=== PATIENT | female | born 1990 | race Caucasian/White ===

== ENCOUNTER → 2016-08-25 | Outpatient (CLI) | payer SELFPAY ==
[~2016-08-25] MED LIST: KFL/250 PO
[2016-08-29 03:01] LABS: CHLAMYDIA TRACH RNA*** NOT DETECTED (NOT DETECTED); GC (NEIS GONORRHOEAE)RNA** NOT DETECTED (NOT DETECTED)
== END | disposition home or self-care (01) ==
LOC: C.LABSPEC 18:23
PROVIDERS: ATTEND Obstetrics & Gynecology
DX: Z20.2 Contact with and (suspected) exposure to infections with a predominantly sexual mode of transmission (principal)

== ENCOUNTER 2016-09-07 17:37 | Emergency (ER) | payer SELFPAY ==
[~2016-09-07] VITALS: Ht 157.5 cm; Wt 76.6 kg
[2016-09-07 17:52] VITALS: BP 132/78; TEMP 37; Ht 157.5 cm; Wt 76.6 kg
[2016-09-07] MEDS ORDERED: XYLOCAINE 1%/SOD BICARB 20 ML VIAL INFIL ONE (18:15)
[2016-09-07] MEDS ORDERED: KFL/250 PO (18:41)
--- NOTE | 2016-09-07 18:41 | EMERGENCY ROOM VISIT NOTE ---
History First contact with patient: 18:00 Chief Complaint: LEG PAIN,LEG INJURY Stated Complaint: LUMP ON LEG, PAINFUL AND SEEPING History of Present Illness The patient is a 26 year old female who presents to the Emergency Room with complaints of a small painful lump on the inside of her right thig she statesh. She states it's been there for about one month. She was concerned today because she saw some clear drainage coming from it and felt a sharp pain. The patient just finished a course of Keflex for a cyst on her labia. She finished that on September 04. The patient denies any fever. Review of Systems 6 system review was performed and was negative unless stated otherwise in history of present illness. Past Medical/Surgical History Medical Problems: (1) Anxiety (2) Chlamydial infection (3) Depression (4) Pneumonia (5) Pyelonephritis (6) [place] Teeth Removal Family History Cancer Diabetes mellitus Gallbladder disease Hypertension Social History Smoking Status: Current Every Day Smoker Alcohol Use: heavy Drug Use: none Marital Status: single Housing Status: lives with family Occupation Status: employed Current/Historical Medications No Active Prescriptions or Reported Meds Allergies Coded Allergies: No Known Allergies (Verified , 09/07/16) Physical Exam Vital Signs Date Time Temp Pulse Resp B/P Pulse Ox O2 Delivery O2 Flow Rate FiO2 09/07/16 17:52 37.0 77 16 132/78 99 Room Air Physical Exam GENERAL: 26-year-old white female appears in no acute distress. MENTAL Status: Alert and oriented 3. RIGHT THIGH: There is a small firm lump on the inferior medial proximal portion of the thigh which measures approximately 2 cm in length there is some fluctuance noted centrally. There is no erythema. There is no visible drainage or pointing. Medical Decision & Procedures Procedure I&D abscess The area was prepped with Betadine 3. The area was anesthetized with 1% buffered lidocaine. A small incision was made using an 11 blade scalpel. A small bowel of blood was expressed but no serous or purulent drainage. Antibiotic ointment and a bandage was applied. Patient tolerated procedure well. ED Course The patient was evaluated. I discussed with the patient that I do not feel that this needed to be drained but she was insistent that I try to drain the abscess. See procedure note as above. There was no purulent drainage therefore no culture was obtained. Antibiotic ointment and a bandage was applied. The patient was discharged home in stable condition. Medical Decision I do not feel that the small possible abscess needed drained but the patient was insistent therefore was attempted without any success. The patient will be prophylactically placed on antibiotics for 5 days. Impression Primary Impression: Hair follicle infection Departure Information Dispostion Home / Self-Care Condition GOOD Prescriptions Cephalexin Monohydrate (Keflex) 250 Mg Cap 250 MG PO QID for 5 Days, #20 CAP Prov: Carmen Gonzalez PA-C 09/07/16 Referrals No Doctor, Assigned (PCP) Forms HOME CARE DOCUMENTATION FORM, IMPORTANT VISIT INFORMATION Patient Instructions My [facility] Additional Instructions Warm compresses several times a day to the affected area. Take Keflex as prescribed. If symptoms worsen, follow-up with family doctor or return to ER.
[2016-09-07 18:54] VITALS: PULSE 67; O2SAT 98
== END 2016-09-07 18:58 | disposition home or self-care (01) ==
LOC: C.EDB 17:39 → C.EDD 18:58
DX: L73.9 Follicular disorder, unspecified (principal); F32.9 Major depressive disorder, single episode, unspecified; F41.9 Anxiety disorder, unspecified; F17.200 Nicotine dependence, unspecified, uncomplicated; Z87.440 Personal history of urinary (tract) infections; Z80.9 Family history of malignant neoplasm, unspecified; Z83.3 Family history of diabetes mellitus; Z83.79 Family history of other diseases of the digestive system; Z82.49 Family history of ischemic heart disease and other diseases of the circulatory system

== ENCOUNTER 2025-04-22 08:34 | Inpatient (IN) ==
--- NOTE | 2025-04-16 15:06 | Anesthesiology Consultation ---
Date of Service April 16, 2025 Assessment & Plan (1) Encounter for pre-operative examination: - PCP office visit 03/14/25 [place]: "...Has appt with [facility] today and got an appointment March 20. Encouraged to keep this appt. Noted she restarted Venlafaxine 12.5mg earlier and now on 25mg. Appears her mood is currently stable. She has appropriate counseling follow up. Recommend to follow up at least for 6 months but open to earlier appt in post period if mood w orsens at all. Has contact information for crisis support services if needed. No current SI/HI today..." - ER 02/24/25 [facility]: "...Aspirin, Tylenol and alcohol levels were undetectable. Urine tox was positive for marijuana...felt medically clear. She was seen by psychiatry case management. The patient is at baseline suicidal. She has suicidal thoughts daily. She believes that the alcohol she had last evening prompted her to feel worse. She has no plan on harming herself. She is not planning on drinking any more alcohol. The patient would like to safety plan and be discharged home. She has a child at home she needs to care for her. As she is currently at 31 weeks, as she is not actively suicidal, as there is no 302 petitioning paperwork against her or any valid reason for a 302 petition, she will be discharged home..." - Per historian dramatic arts on 04/16/25: No known infectious disease contacts, current infectious disease symptoms in past 10 days or COVID positive test result in the past 30 days. Chart Review Chart Review: freelance data entry initiated History Surgery Operation Date: 04/22/25 10:20 Proposed Procedures p Section (Delivery of Baby Through Abdominal Incision) - Winston Virk MD, FACOG s With Bilateral Tubal Ligation - Winston Virk MD, FACOG Height/Weight Height: 5 ft 2 in Weight: 76.204 kg Allergies Allergy/AdvReac Type Severity Reaction Status Date / Time No Known Allergies Allergy Verified 04/16/25 14:29 Medications Home Medications Medication Instructions Recorded Confirmed Last Taken valacyclovir 500 mg tablet 500 mg PO DAILY PRN herpes 10/02/24 04/16/25 Unknown breast pump #1 ea 02/22/25 04/08/25 Unknown ondansetron HCl 4 mg tablet 4 mg PO Q6H PRN nausea and 03/15/25 04/16/25 Unknown vomiting #20 tabs nicotine 7 mg/24 hr daily 1 patch transdermal Q24H #14 ea 03/18/25 04/16/25 Unknown transdermal patch acetaminophen 500 mg tablet 1,000 mg PO Q6H PRN Pain 04/16/25 04/16/25 Unknown Past Medical History Medical History (Updated 04/16/25 @ 14:59 by Roseanne Boyce PA-C) history Anxiety Fear of needles reports extreme fear Genital herpes hasn't taken valtrex x 1 week, has itching currently Hair follicle infection hx High serum chloride hx History of cardiac murmur as a child no issues as an adult Hx of vertigo Hx: UTI (urinary tract infection) no current symptoms Major depressive disorder states quit taking medication on own and "self helps" Nausea and vomiting states was vomiting last evening and felt r/t anxiety Right ovarian cyst hx Past Family History Family History Other Cancer Diabetes Heart disease Hypertension Past Surgical History Surgical History Hx of wisdom tooth extraction as a teenager S/P section (2021) Social History Smoking Status: Current every day smoker tobacco type: cigarettes Smoking cigarettes per day: 1/2 to 1 ppd (advised) Do You Dip or Chew Tobacco: No Hx Alcohol Use: Yes Alcohol Intake Frequency Comment: prior to , drank every few months Hx Substance Use: Yes substance use type: marijuana Last Used Substance Other:: last used yesterday (advised) Lab Results Anesthesia Preop Results Results Anesthesia Widget: WBC 19.64 K/ul (4.8-10.8) H 02/24/25 Hgb 12.0 g/dl (12.0-16.0) 02/24/25 Hct 35.0 % (37.0-47.0) L 02/24/25 Plt 298 K/uL (130-400) 02/24/25 Na 141 mmol/L (136-145) 02/24/25 K 3.5 mmol/L (3.5-5.1) 02/24/25 Cl 110 mmol/L (98-107) H 02/24/25 CO2 22 mmol/L (21-32) 02/24/25 BUN 6 mg/dl (6-23) 02/24/25 Creat 0.49 mg/dl (0.6-1.2) L 02/24/25 Glucose Level 82 mg/dl (70-99(Fasting)) 02/24/25 TSH 1.022 uIu/ml (0.300-4.500) 02/24/25 Urine Color Yellow 02/24/25 Urine Appearance Cloudy (Clear) A 02/24/25 Urine pH 6.5 (4.5-7.5) 02/24/25 Urine Specific [place] 1.023 (1.000-1.030) 02/24/25 Urine Protein 2+ (Negative) H 02/24/25 Urine Glucose (UA) Negative (Negative) 02/24/25 Urine Ketones 2+ (Negative) H 02/24/25 Urine Blood Negative (Negative) 02/24/25 Urine Nitrite Negative (Negative) 02/24/25 Urine Bilirubin Negative (Negative) 02/24/25 Urine Urobilinogen Negative (Negative) 02/24/25 Urine Leukocyte Esterase Negative (Negative) 02/24/25 Urine WBC (Auto) 6-10 /hpf (0-5) H 02/24/25 Urine RBC (Auto) 0-2 /hpf (0-2) 02/24/25 Urine Hyaline Casts (Auto) 0-2 /lpf (0-2) 02/24/25 Urine Epithelial Cells (Auto) 6-10 /hpf (0-2) H 02/24/25 Urine Bacteria (Auto) None Seen (None Seen) 02/24/25 Urine Yeast Present (None Prsent) A 02/24/25 SARS-CoV-2, RNA, NAAT NEGATIVE (NEGATIVE) 02/24/25 Testing Electrocardiogram Date: 11/11/24 Sinus bradycardia, rate 58 bpm Chest X-Ray Date: 06/30/24 *1 view* No acute abnormality Other Testing Brain MRI 11/11/24 No MRI evidence of an acute intracranial abnormality, sinusitis or mastoiditis. Abdomen pelvis CT 05/28/24 No acute abnormalities to explain abdominal pain, nausea, and vomiting. In particular no evidence of appendicitis or bowel obstruction.
[2025-04-22 09:30] LABS: Hematocrit (blood only) 31.3 % (37.0-47.0); Hemoglobin 10.6 g/dl (12.0-16.0); Mean Corpuscular Hemoglobin 30.5 pg (25.0-34.0); Mean Corpuscular Volume 89.9 fL (80.0-100.0); Platelet Count 276 K/uL (130-400); RDW Standard Deviation 42.4 fL (36.4-46.3); Red Blood Count 3.48 M/uL (4.20-5.40); White Blood Count 12.85 K/ul (4.8-10.8)
[2025-04-22] MEDS: LACTATED RINGER'S 1,000 ML IV SCH ×4 (10:19→12:54)
[2025-04-22] MEDS: ACETAMINOPHEN 500 MG TAB PO SCH (10:28)
--- NOTE | 2025-04-22 10:38 | History & Physical Report ---
Date of Service April 22, 2025 Assessment & Plan (1) Encounter for pre-operative examination: Plan: Repeat section. The patient was counseled to the nature of the procedure including alternatives such as labor. Risks were discussed including bleeding infection injury to bowel bladder ureter vessels and even baby. The risks of internal organ injury were discussed as being higher with prior sections. Deep Vein Thrombosis, pulmonary embolus and breakdown of the incision discussed. Deep vein thrombosis pulmonary embolus hernia and failure of the incision to heal were discussed Patient verbalized understanding of this and was given ample time to ask questions Admission and Anticipated Discharge Date Admission Date: April 22, 2025 History of Present Illness Primary Care Provider: Carlos Alberto Monzon DO Visit LO Calculator Estimated Delivery Date Method Current WG Current Estimate 04/29/25 Ultrasound #1 38w 4d Other Estimates 04/15/25 LMP (Certain) 40w 4d LMP: 07/09/24 : 4 Full term: 1 Premature: 0 Total Number of Induced Abortions: 1 Total Number of Spontaneous Abortions: 1 Ectopics: 0 Multiple births: 0 Number of Living Children: 1 and Delivery Plans previous -ror signed - consent provided wishes tubal and repeat C/S WITH TUBAL SCHEDULED FOR 04/26/[address] MONTERO C/S WITH TUBAL RESCHEDULED FOR 04/22/[address] PACKER HSV Valtrex @ 36 weeks Current every day smoker -trying to cut down, encouraged to stop AMA Weekly NST's @ 36 weeks Daughter has clubbed feet, different FOB -eval at poncho Rubella Equivocal *Recommend PPX MMR Allergies Allergy/AdvReac Type Severity Reaction Status Date / Time No Known Allergies Allergy Verified 04/22/25 09:36 Home Medications Medication Instructions Recorded Confirmed Type valacyclovir 500 mg tablet 500 mg PO DAILY PRN herpes 10/02/24 04/19/25 History breast pump #1 ea 02/22/25 04/19/25 Rx nicotine 7 mg/24 hr daily 1 patch transdermal Q24H #14 ea 03/18/25 04/19/25 Rx transdermal patch acetaminophen 325 mg tablet 1,000 mg PO QID PRN Pain 04/22/25 04/22/25 History (Tylenol) Patient History Medical History history Anxiety Fear of needles reports extreme fear Genital herpes hasn't taken valtrex x 1 week, has itching currently Hair follicle infection hx High serum chloride hx History of cardiac murmur as a child no issues as an adult Hx of vertigo Hx: UTI (urinary tract infection) no current symptoms Major depressive disorder states quit taking medication on own and "self helps" Nausea and vomiting states was vomiting last evening and felt r/t anxiety Right ovarian cyst hx Surgical History Hx of wisdom tooth extraction as a teenager S/P section (2021) Family History Other Cancer Diabetes Heart disease Hypertension Social History (Updated 04/22/25 @ 09:36 by Areli Gordon RN) Smoking Status: Current every day smoker Tobacco Type: Cigarettes Age Started Using Tobacco: 12; packs per day: 0.25; Cigarettes Per Day: 1/2 to 1 ppd (advised); Second Hand Exposure: No; Do You Dip or Chew Tobacco: No; Tobacco Cessation Education Requested by Patient: No Hx Alcohol Use: Yes Alcohol type: beer and hard liquor Hx Substance Use: Yes Last Used Substance: Days (ago) Last Used Substance Other:: Patient reported using marijuana yesterday. Preferred Language: Armenian Communication Ability: Effective Vp Of Customer Experience Strategy Required: No Beliefs That Will Affect Care: None marital status: Single Current Living Situation: Family Current Living Situation Comment: Patient lives with her daughter and a dog. current occupational status: employed Other Information That Helps Us Care for You: No Feels Safe at Home: Yes Safety Concerns: Feels Safe At This Time Childhood Exposure to Second-Hand Smoke: No Diet: regular caffeine: Yes Dental Care, Regularly: No Physical Activity Frequency: Does not Exercise Seatbelt Use: always Sunscreen Use: Yes Gender Identity: Female Assistive Devices: Glasses Physical Exam Constitutional: WD/WN, vitals as above well developed and well nourished Respiratory: normal respiratory effort, lungs clear to auscultation normal respiratory effort Cardiovascular: RRR, no murmur, no edema Gastrointestinal (Abdomen): normal bowel sounds, soft, nontender, no hepatosplenomegaly Results & Data Vital Signs (Past 12 Hours) Vital Signs Temp Pulse Resp BP 04/22/25 09:40 98.8 F 18 04/22/25 08:47 71 123/63 04/22/25 08:46 18 04/22/25 08:46 98.8 F 18 Coding Level of Care Code None Diagnoses Encounter for pre-operative examination Z01.818
[2025-04-22] MEDS: CITRIC ACID/SODIUM CITRATE 15 ML UDC PO SCH (11:27)
[2025-04-22] MEDS ORDERED: MoRPHine SULFATE PF 1 MG/ML 10 ML AMP/VIAL ONE (11:28)
[2025-04-22] MEDS ORDERED: PHENYLEPHRINE 100MCG/ML 5ML SYR ONE (11:29)
[2025-04-22] MEDS ORDERED: NALOXONE HCL 1 MG in SODIUM CHLORIDE 0.9% 1,000 ML IV PRN (12:10)
[2025-04-22] MEDS ORDERED: NALOXONE HCL 0.4 MG/1 ML VIAL/CARP IV PRN (12:10)
[2025-04-22] MEDS ORDERED: ACETAMINOPHEN 1,000 MG/100 ML VIAL IV PRN (12:10)
[2025-04-22] MEDS ORDERED: MEPERIDINE HCL 25 MG/ML CARP/VIAL IV PRN (12:10)
[2025-04-22] MEDS ORDERED: MoRPHine SULFATE 2 MG/ML CARP IV PRN (12:10)
[2025-04-22] MEDS ORDERED: NALOXONE HCL 0.08 MG in SYRINGE 1.8 ML IV PRN (12:10)
[2025-04-22] MEDS ORDERED: LACTATED RINGER'S 500 ML IV PRN (12:10)
[2025-04-22] MEDS ORDERED: HYDROmorphone INJ 0.5 MG/0.5 ML SYR IV PRN (12:10)
[2025-04-22] MEDS ORDERED: KETOROLAC 30 MG/ML VIAL IV PRN (12:10)
[2025-04-22] MEDS ORDERED: NALBUPHINE HCL INJ 10 MG/ML AMP IV PRN (12:10)
[2025-04-22] MEDS ORDERED: NO NARCOTICS OR SEDATIVES SCH (12:15)
[2025-04-22] MEDS ORDERED: DC INTRASPINAL MORPHINE SCH (12:15)
[2025-04-22] MEDS ORDERED: OXYTOCIN 10 UNITS/ML VIAL ONE (12:20)
[2025-04-22] MEDS ORDERED: MAGNESIUM HYDROXIDE SUSP 30 ML UDC PO PRN (12:35)
[2025-04-22] MEDS ORDERED: CALCIUM CARBONATE 500 MG CHEWABLE TAB PO PRN (12:35)
[2025-04-22] MEDS ORDERED: SENNA 8.6 MG TAB PO PRN (12:35)
[2025-04-22] MEDS ORDERED: HYDROCORTISONE ACETATE 25 MG SUPP PR PRN (12:35)
[2025-04-22] MEDS ORDERED: BENZOCAINE 20% SPRY 85 APPLN/85 GM CAN EXT PRN (12:35)
[2025-04-22] MEDS: SODIUM CHLORIDE 0.9% 1,000 ML IV SCH (12:50)
[2025-04-22] MEDS: KETOROLAC 30 MG/ML VIAL IV SCH (12:50)
[2025-04-22] MEDS: MoRPHine SULFATE PF 1 MG/ML 10 ML AMP/VIAL INT SPINAL ONE (12:50)
[2025-04-22] MEDS: DIPHTHER/TETAN/PERTUS Vaccine (Tdap, Adol/Adult) 0.5mL IM ONE (12:52)
[2025-04-22 13:03] LABS: Amphetamines+Metham, Urine Neg (Neg); MDMA (Ecstacy), Urine Neg (Neg); Marijuana, Urine Neg (Neg)
--- NOTE | 2025-04-22 13:09 | Operative Report ---
Post Operative Report Pre & Post Diagnosis Operation Date: 04/22/25 10:30 Pre-Op Diagnosis: Repeat 39 completed weeks of Requests Sterilization Post-Op Diagnosis: Repeat 39 completed weeks of Requests Sterilization I identified the patient and participated in the time-out.: Yes Procedure Operation Date: 04/22/25 10:30 Actual Procedures p Section in LD - live female infant at 1202 - Winston Virk MD, FACOG s Post Tubal Ligation Labor & Deliv(Bilateral) - Winston Virk MD, FACOG Surgeon Winston Virk MD, FACOG Documentation Writer Maryann Medina Quantitative Blood Loss (QBL) 364 Findings Consistent with Post-Op Diagnosis Specimens Cord blood bilateral fallopian tubes Description of Procedure Regional anesthetic had been given by anesthesia patient was prepped and draped with a leftward tilt preoperative antibiotics had been given in appropriate timing by anesthesiology. Once the prep was allowed to fully dry timeout was performed. Pickups with teeth were used to test the incision area was found to be adequate for incision as the patient did not feel sharp pain. Scalpel was used to make a Pfannenstiel incision on the lower abdomen. We then cut through the subcutaneous fat down to the level of the anterior rectus sheath fascia this was cut in the midline and then extended laterally with the curved Vazquez scissors. At this stage we then placed 2 Xuan clamps on the anterior aspect of the fascia. Using the curved Vazquez's we are able to dissect the fascia superiorly away from the rectus muscles. Care was taken to maintain hemostasis. Xuan clamps were then placed to the inferior aspect of the anterior sheath of the fascia. Fascia was then dissected away from the rectus muscles inferiorly towards the pubic bone. A Xuan was then placed in the midline both inferiorly and superiorly. This was to allow exposure by retraction rectus muscles were in the midline with were then able to cut through the peritoneum and then enter the peritoneal cavity. Opening was enlarged to allow exposure of the peritoneal cavity both superiorly and inferiorly. Once adequate space was obtained a bladder retractor was placed to expose the lower segment Metzenbaums were used to dissect the bladder flap inferiorly away from the uterus. This was done sharply bladder retractor was then repositioned to expose the lower segment of the uterus Fresh scalpel was used to make a low transverse incision on the uterus. Uterus was then entered bluntly with the operators finger, membranes ruptured and the opening was enlarged using the operators fingers bluntly pulling superiorly and inferiorly to allow exposure. Baby was delivered by first flexion of the head elevation of the head out of the pelvis and then pressure by the bar assistant on the maternal abdomen. Baby's head was then delivered mouth and then nares were suctioned and then using gentle traction the baby was fully delivered. Live vigorous . Fluid was clear cord clamped and cut cord gases obtained cord blood obtained baby handed to pediatrics. Placenta removed was removed with traction we ensure the entire placenta was removed with a moist lap sponge into the uterus Uterus was then exteriorized. IV Pitocin had been started by anesthesia tone improved there were no extensions the uterus was then closed using 0 Monocryl in a 2 layer closure the first layer closed in a running locked fashion from left to right and then a second closure from left to right in a running nonlocked fashion. At this stage hemostasis was excellent. Confirmed verbally with the patient that she still wishes to proceed with a tubal ligation first of all the right tube was grasped with a Jorge elevated using the Lige sure I was able to coagulate and cut the mesosalpinx to the level of the tube nearing the uterus we then transected the tube with the LigaSure and tube was sent to pathology same exact process was done on the right and the left side. Of note when the uterus was placed back in the peritoneal cavity the tubal ligation sites were hemostatic both adnexa appeared otherwise normal Uterus was placed back in the peritoneal cavity with suction irrigation out and inspection of the uterus at this stage revealed excellent hemostasis Retractors were removed urine color was clear at this stage of the case we inspected the rectus muscles they were hemostatic fascia was closed with 0 Vicryl subcutaneous fat was irrigated and closed with 3-0 Vicryl skin closed with 4-0 subcuticular Monocryl I attest to the content of the Intraoperative Record and any orders documented therein. Any exceptions are noted below. OB Procedure Charges 99142
[2025-04-22] MEDS: OXYTOCIN 20 UNITS/LR 1,002 ML IV SCH (14:15)
--- NOTE | 2025-04-22 15:26 | Anesthesiology Progress Note ---
Date of Service April 22, 2025 Anesthesia Post Procedure Vital Signs Vital Signs: Temp Pulse Resp BP Pulse Ox 04/22/25 15:22 59 L 114/56 L 04/22/25 15:20 65 96 04/22/25 15:15 71 97 04/22/25 15:10 67 98 04/22/25 15:05 68 98 04/22/25 15:02 64 108/57 L 04/22/25 15:00 76 96 04/22/25 14:55 67 96 04/22/25 14:50 71 96 04/22/25 14:45 75 97 04/22/25 14:42 65 120/64 04/22/25 14:40 74 96 04/22/25 14:35 66 98 04/22/25 14:30 71 97 04/22/25 14:25 72 98 04/22/25 14:23 77 118/54 L 04/22/25 14:20 72 98 04/22/25 14:15 64 98 04/22/25 14:10 71 96 04/22/25 14:05 72 97 04/22/25 14:02 123 H 137/82 04/22/25 14:00 79 96 04/22/25 13:55 64 97 04/22/25 13:50 69 98 04/22/25 13:45 78 98 04/22/25 13:41 85 94 04/22/25 13:40 70 96 04/22/25 13:35 80 108/58 L 97 04/22/25 13:30 71 98 04/22/25 13:25 96 04/22/25 13:25 74 04/22/25 13:25 68 104/53 L 04/22/25 13:20 69 97 04/22/25 13:15 81 98 04/22/25 13:10 77 96 04/22/25 13:05 74 99 04/22/25 13:00 77 100 04/22/25 12:55 65 108/54 L 100 04/22/25 12:50 87 100 04/22/25 12:45 100 04/22/25 12:45 73 04/22/25 12:45 78 118/56 L 04/22/25 12:40 84 100 04/22/25 12:36 86 103/58 L 04/22/25 12:35 79 94 04/22/25 09:40 37.1 C 18 04/22/25 08:47 71 123/63 04/22/25 08:46 18 04/22/25 08:46 37.1 C 18 Transfer of Care Handoff Completed per policy Notes Mental Status: alert / awake / arousable and participated in evaluation Nausea / Vomiting: adequately controlled Pain: adequately controlled Airway Patency, RR, SpO2: stable & adequate BP & HR: stable & adequate Hydration State: stable & adequate Neuraxial Anesthesia: was administered and sensory block is resolving Anesthetic Complications: no major complications apparent and Pt Satisfied with anesthetic care
[2025-04-22] MEDS: ONDANSETRON INJ 2 MG/ML 2 ML VIAL IV PRN (16:51)
[2025-04-22] MEDS: ACETAMINOPHEN 325 MG TAB PO SCH (18:30)
[2025-04-22] MEDS: SIMETHICONE 80 MG CHEW PO SCH (18:30)
[2025-04-22] MEDS: DOCUSATE SODIUM 100 MG CAP PO SCH (21:01)
[2025-04-23] MEDS: diphenhydrAMINE 50 MG/ML VIAL IV PRN (00:25)
[2025-04-23] MEDS: ACETAMINOPHEN 500 MG TAB PO SCH (02:00)
[2025-04-23] MEDS: CITRIC ACID/SODIUM CITRATE 15 ML UDC PO SCH (02:00)
[2025-04-23] MEDS ORDERED: ONDANSETRON INJ 2 MG/ML 2 ML VIAL IV PRN (06:10)
[2025-04-23] MEDS ORDERED: PROMETHAZINE 12.5 MG/50.5 ML BAG IV PRN (06:10)
[2025-04-23] MEDS ORDERED: diphenhydrAMINE 50 MG/ML VIAL IV PRN (06:10)
[2025-04-23] MEDS ORDERED: HYDROmorphone INJ 0.5 MG/0.5 ML SYR IV PRN (06:10)
[2025-04-23 06:11] LABS: Hematocrit (blood only) 30.8 % (37.0-47.0); Hemoglobin 10.3 g/dl (12.0-16.0); Immature Granulocytes # (auto) 0.07 K/uL (0.01-0.20); Immature Granulocytes % (auto) 0.5 %; Mean Corpuscular Hemoglobin 30.9 pg (25.0-34.0); Mean Corpuscular Volume 92.5 fL (80.0-100.0); Platelet Count 280 K/uL (130-400); RDW Standard Deviation 43.2 fL (36.4-46.3); Red Blood Count 3.33 M/uL (4.20-5.40); White Blood Count 12.80 K/ul (4.8-10.8)
--- NOTE | 2025-04-23 07:57 | Obstetrical Progress Note ---
Date of Service <Aleida Lasren MD - Last Filed: 04/23/25 08:02> April 23, 2025 Assessment & Plan <Aleida Larsen MD - Last Filed: 04/23/25 08:02> (1) care following delivery: Plan -Continue stable and routine care. Breast feeding. Rhesus Positive. Rubella Immune. Incision and sutures are properly annealed without signs of infection. Monitor. <Winston Virk MD, FACOG - Last Filed: 04/24/25 08:33> (1) care following delivery: Subjective <Aleida Larsen MD - Last Filed: 04/23/25 08:02> Ambulation: ambulating normally Voiding: no voiding problems Passing Gas:: Yes Diet Tolerance:: regular diet Lochia:: Small Feeding Type:: breast feeding PPD 1. Pt resting comfortably at bedside. Review of Systems All systems reviewed & are unremarkable except as noted in HPI & below i. Denies fever, chills, sweats ii. Denies SOB, difficulty breathing, chest pain, palpitations, chest pressure iii. Denies breast pain. iv. Denies Dysuria v. Denies headache or changes in vision. Physical Exam <Aleida Larsen MD - Last Filed: 04/23/25 08:02> Constitutional WD/WN, vitals as above Respiratory normal respiratory effort, lungs clear to auscultation Cardiovascular RRR, no murmur, no edema Gastrointestinal (Abdomen) normal bowel sounds, soft, nontender, no hepatosplenomegaly On palpation of abdomen, fundus is at the level of the umbilicus. uterus is firm and has begun involution, at approximately 1cm/day. Psychiatric A+Ox3, euthymic affect Results & Data <Aleida Larsen MD - Last Filed: 04/23/25 08:02> Vital Signs (Past 12 Hours) Vital Signs Temp Pulse Resp BP Pulse Ox O2 Del Method 04/23/25 05:00 36.5 C 71 18 118/67 99 Room Air 04/23/25 01:56 16 97 04/23/25 01:00 18 98 04/23/25 00:50 36.5 C 70 16 112/62 97 Room Air 04/22/25 23:59 16 95 04/22/25 23:00 16 97 04/22/25 21:57 16 98 04/22/25 21:00 16 98 04/22/25 20:45 36.5 C 56 L 16 119/74 98 Room Air 04/22/25 20:00 18 97 Supervising Physician <Winston Virk MD, FACOG - Last Filed: 04/24/25 08:33> Co-Signing Physician Notes Resident Physician Supervision Note: I was present with [Name of resident] during the history and exam. I discussed the case with the resident and agree with the findings and plan as documented in the note. Any exceptions or clarifications are listed here: [None] Documented By: Winston Virk MD, FACOG Resident Activity Tracking <Aleida Larsen MD - Last Filed: 04/23/25 08:02> Resident Involvement: Resident Care Provided Care Provided: OB Delivery
[2025-04-23] MEDS: FERROUS SULFATE 325 MG TAB PO SCH (08:11)
[2025-04-23] MEDS: PRENATAL VITAMIN 1 TAB PO SCH (08:12)
[2025-04-23] MEDS: diphenhydrAMINE Capsule 25 MG CAP PO PRN (12:19)
[2025-04-23] MEDS: IBUPROFEN 600 MG TAB PO SCH (12:22)
[2025-04-23] MEDS ORDERED: KETOROLAC 30 MG/ML VIAL IV PRN (12:35)
[2025-04-23] MEDS ORDERED: MEASLES, MUMPS & RUBELLA VIRUS VACCINE (MMR) 0.5ML VIAL SQ ONE (15:54)
[2025-04-24 05:07] VITALS: RESP 18; TEMP 97.9
[2025-04-24 06:21] LABS: Hematocrit (blood only) 27.0 % (37.0-47.0); Hemoglobin 9.0 g/dl (12.0-16.0)
--- NOTE | 2025-04-24 07:36 | Obstetrical Progress Note ---
Date of Service April 24, 2025 Assessment & Plan (1) care following delivery: Plan stable, routine care. ready for dc home, accepts mmr. breast and bottle feeding, instructions reviewed. f/u 6wk pp check. discussed pain meds. checked on pa pdmp. Subjective Ambulation: ambulating normally Voiding: no voiding problems Passing Gas:: Yes Diet Tolerance:: regular diet Lochia:: Small Feeding Type:: breast feeding pain control ok, Constitutional: + as per Subjective / HPI Physical Exam Constitutional WD/WN, vitals as above Respiratory normal respiratory effort, lungs clear to auscultation Cardiovascular Rate/Rhythm: regular rate and regular rhythm Gastrointestinal (Abdomen) Inspection/Auscultation: abdomen normal to inspection and + abdominal surgical incision (dressing still in place. pt did not want to remove until in shower) Percussion/Palpation: abdomen soft Fundus firm 2cm down Musculoskeletal nt calves no edema Neurologic grossly normal Psychiatric A+Ox3, euthymic affect Results & Data Vital Signs (Past 12 Hours) Vital Signs Temp Pulse Resp BP Pulse Ox O2 Del Method 04/23/25 23:05 97.9 F 64 18 123/77 97 Room Air 04/23/25 20:20 97.7 F 74 20 131/75 98 Room Air
[2025-04-24 08:44] VITALS: BP 117/77; PULSE 60; O2SAT 98
[2025-04-24] MEDS: IBUPROFEN 600 MG TAB PO PRN (12:34)
[2025-04-24] MEDS ORDERED: ACETAMINOPHEN 325 MG TAB PO PRN (18:35)
== END 2025-04-24 17:30 | disposition home or self-care (01) | DRG 784 ==
LOC: 4S1 08:34 → 4E2 15:40 → EDSTATUS 04-26 07:30
PROC: M.PPTLD (2025-04-22 10:30)